=== PATIENT | female | born 1950 | race Two or more races ===

== ENCOUNTER 2018-08-16 09:23 | Emergency (ER) | payer MEDICARE, MEDICAID ==
[~2018-08-16] VITALS: Ht 160 cm; Wt 62.6 kg
[2018-08-16 09:33] VITALS: BP 156/55
== END 2018-08-16 10:30 | disposition home or self-care (01) ==
LOC: ER 09:27
DX: S40.012A Contusion of left shoulder, initial encounter (principal); M54.2 Cervicalgia; E11.9 Type 2 diabetes mellitus without complications; V49.49XA Driver injured in collision with other motor vehicles in traffic accident, initial encounter; Y93.89 Activity, other specified; Y99.8 Other external cause status; Y92.89 Other specified places as the place of occurrence of the external cause